=== PATIENT | male | born 1985 | race Two or more races ===

== ENCOUNTER 2019-03-20 05:31 | Emergency (ER) | payer OTHER ==
[~2019-03-20] VITALS: Ht 167.6 cm; Wt 77.3 kg
[2019-03-20] MEDS ORDERED: BACITRACIN OINT 30GM TOP ONE (07:00)
[2019-03-20 07:25] VITALS: BP 121/81
== END 2019-03-20 07:26 | disposition home or self-care (01) ==
LOC: M ED 05:31
DX: T14.8XXA Other injury of unspecified body region, initial encounter (principal); V28.4XXA Motorcycle driver injured in noncollision transport accident in traffic accident, initial encounter; Y92.410 Unspecified street and highway as the place of occurrence of the external cause